=== PATIENT | female | born 1980 | race Caucasian/White ===

== ENCOUNTER 2019-04-23 17:30 | Emergency (ER) | payer OTHER ==
[2019-04-23 18:00] VITALS: BP 131/95
--- NOTE | 2019-04-23 18:16 | UC ---
Skin Complaint HPI - HPI Summary HPI Summary: C/O itchy bumpy rash x 3 days, spreading. On back, chest, neck, abdomen. No new medications or other exposures. - History of Current Complaint Chief Complaint: UCRash Stated Complaint: SKIN CONCERN Hx Obtained From: Patient Hx Last Menstrual Period: HAD HYSTERECTOMY 02013 ?: No Onset/Duration: Sudden Onset, Lasting Days - 3, Worse Since - onset Timing: Constant Onset Severity: Mild Current Severity: Moderate Pain Intensity: 4 Location: Diffuse Character: Pruritus, Redness, Raised Aggravating Factor(s): Clothing, Touch Alleviating Factor(s): Cold, Antihistamines - Allergy/Home Medications Allergies/Adverse Reactions: Allergies Allergy/AdvReac Type Severity Reaction Status Date / Time No Known Allergies Allergy Verified 04/23/19 17:59 PMH/Surg Hx/FS Hx/Imm Hx Previously Healthy: Yes - Surgical History Surgical History: Yes Surgery Procedure, Year, and Place: C SECTION X'S 3, APPENDECTOMY, GALL BLADDER REMOVAL, HYSTERECTOMY - Family History Known Family History: Positive: Hypertension - Social History Occupation: Employed Full-time Lives: With Family Alcohol Use: None Substance Use Type: None Smoking Status (MU): Former Smoker Type: Cigarettes Amount Used/How Often: 1 PPD Have You Smoked in the Last Year: Yes When Did the Patient Quit Smoking/Using Tobacco: 10 months Household Exposure Type: Cigarettes Review of Systems All Other Systems Reviewed And Are Negative: Yes Skin: Positive: Rash Is Patient Immunocompromised?: No Physical Exam Triage Information Reviewed: Yes Appearance: Well-Appearing, No Pain Distress, Well-Nourished Vital Signs: Initial Vital Signs Temp 98.3 F 04/23/19 17:55 Pulse 90 04/23/19 17:55 Resp 16 04/23/19 17:55 BP 131/95 04/23/19 17:55 Pulse Ox 100 04/23/19 17:55 Vital Signs Reviewed: Yes Eyes: Positive: Conjunctiva Clear ENT Exam: Normal Neck exam: Normal Respiratory Exam: Normal Cardiovascular Exam: Normal Musculoskeletal Exam: Normal Neurological Exam: Normal Psychological Exam: Normal Skin: Positive: Rashes - diffuse maculopapular rash neck down chest and back to the abdomen and to the top of the buttocks. Course/Dx - Differential Diagnoses - Skin Complaint Differential Diagnoses: Cellulitis, Contact Dermatitis, Drug Rash, Urticaria, Viral Exanthem - Diagnoses Provider Diagnosis: Dermatitis Discharge - Sign-Out/Discharge Documenting (check all that apply): Patient Departure All imaging exams completed and their final reports reviewed: No Studies - Discharge Plan Condition: Stable Disposition: HOME Prescriptions: predniSONE TAB* [Deltasone 20 MG TAB*] 60 mg PO DAILY #18 tab Patient Education Materials: Acute Rash (ED), Prednisone (By mouth) Referrals: Aminata Mckeon MD [Primary Care Provider] - Additional Instructions: OTC cetirizine 10mg in the evening and 180 mg fexofenadine in the morning. - Billing Disposition and Condition Condition: STABLE Disposition: Home
== END 2019-04-23 18:24 | disposition home or self-care (01) ==
LOC: UCCORT 17:30
DX: L30.9 Dermatitis, unspecified (principal); Z87.891 Personal history of nicotine dependence
CPT/HCPCS: 99212; G0463

== ENCOUNTER 2020-02-17 14:39 | Emergency (ER) | payer OTHER ==
--- OUTSIDE RECORDS SUMMARY | 2020-02-17 14:49 | XMS REPORT | Continuity of Care Document ---
:1980 External Reference #:[id number] Author Name Joe Martinez MD (transmitted by agent of provider Sheryl Chowdhury) Address [address] [place] [id number] Care Team Providers Name Role Phone Rosemary Plascencia NP - Nurse Care Team Information Lapidary Apprentice [phone] Practitioner Problems Active Problems Provider Date Carpal tunnel syndrome Bart Estrada MD, FACS Onset: 01/26/2013 Social History Type Date Description Comments Sex Unknown Tobacco Use Start: Unknown current cigarette smoker 5 a day ETOH Use Denies alcohol use Tobacco Use Start: Unknown Light tobacco smoker (10 or fewer cigarettes/day) Smoking Status Reviewed: 12/27/19 Light tobacco smoker (10 or fewer cigarettes/day) Allergies, Adverse Reactions, Alerts Active Allergies Reaction Severity Comments Date NKDA 01/26/2013 Latex 01/26/2013 Medications Description No Active Medications Immunizations CPT Code Status Date Vaccine Lot # [id number] Given 07/09/2010 flu vaccination 27599 Given 07/09/2010 H1N1 Immuniation Adminstration Vital Signs Date Vital Result Comment 08/18/2016 3:13pm BP Systolic Sitting Left Arm 118 mmHg BP Diastolic Sitting Left Arm 78 mmHg Heart Rate 84 /min Respiratory Rate 18 /min Height 63 inches 5'3" Weight 156.00 lb BMI (Body Mass Index) 27.6 kg/m2 BSA (Body Surface Area) 1.74 m2 Lav[place] body weight in kilograms 52 kg 01/26/2013 9:58am BP Systolic Sitting Right Arm 112 mmHg BP Diastolic Sitting Right Arm 68 mmHg Height 63.5 inches 5'3.50" Weight 149.00 lb BMI (Body Mass Index) 26.0 kg/m2 Results Description No Information Available Procedures Date Code Description Status 12/27/2019 73626 Gonioscopy Completed 12/27/2019 82016 Eye Exam New Patient Comprehensive Completed 12/27/2019 93637 Ophthalmic Ultrasound, Corneal Pachymetry, Completed Unilateral/Bilateral Medical Devices Description No Information Available Encounters Description No Information Available Assessments Date Code Description Provider 12/27/2019 H40.053 Ocular hypertension, bilateral Joe Martinez MD Plan of Treatment Future Appointment(s):02/07/2020 8:15 am - Joe [facility] MD at [id number]/ 25/2020 - Joe Martinez MDH40.053 Ocular hypertension, bilateralComments:- iop 22, 25- angle open on gonioscopy- pachymetry: 553, 555- discussed potential for glaucoma, potential need for iop-lowering such as drops, laser, surgery, potential for vision loss- recommend 4-6 weeks iop check, vf 24-2, oct rnflFollow up:recommend 4-6 weeks iop check, vf 24-2, oct rnfl; long Functional Status Functional Condition Comment Date Status Independent with all ADL's Active Independent with all IADL's Active Mental Status Description No Information Available Referrals Description No Information Available
--- OUTSIDE RECORDS SUMMARY | 2020-02-17 14:49 | XMS REPORT | Continuity of Care Document ---
:1980 External Reference #:[id number] Author Name Joe Martinez MD Address [address] [place] [address] Care Team Providers Name Role Phone Rosemary Plascencia NP - Nurse Care Team Information Direct Customer Service Representative [phone] Practitioner Problems Active Problems Provider Date Carpal [...] CPT Code Status Date Vaccine Lot # [id number] Given 07/09/2010 flu vaccination 32126 Given 07/09/2010 H1N1 Immuniation Adminstration Vital Signs Date Vital Result Comment 08/18/2016 3:13pm BP Systolic Sitting Left Arm 118 mmHg BP Diastolic Sitting Left Arm 78 mmHg Heart Rate 84 /min Respiratory Rate 18 /min Height 63 inches 5'3" Weight 156.00 lb BMI (Body Mass Index) 27.6 kg/m2 BSA (Body Surface Area) 1.74 m2 Ellis body weight in kilograms 52 kg 01/26/2013 9:58am BP Systolic Sitting Right Arm 112 mmHg BP Diastolic Sitting Right Arm 68 mmHg Height 63.5 inches 5'3.50" Weight 149.00 lb BMI (Body Mass Index) 26.0 kg/m2 Results Description No Information Available Procedures Date Code Description Status 12/27/2019 03432 Gonioscopy Completed 12/27/2019 93095 Eye Exam New Patient Comprehensive Completed 12/27/2019 35972 Ophthalmic Ultrasound, Corneal Pachymetry, Completed Unilateral/Bilateral Medical Devices Description No Information Available Encounters Description No Information Available Assessments Date Code Description Provider 12/27/2019 H40.053 Ocular hypertension, bilateral Joe Martinez MD Plan of Treatment Future Appointment(s):02/07/2020 8:15 am - Jeo Martinez MD at [id number]/ 25/2020 - Joe Martinez MDH40.053 Ocular hypertension, [...]
[2020-02-17 14:59] VITALS: BP 136/94
--- NOTE | 2020-02-17 15:31 | UC ---
Hand/Wrist HPI - HPI Summary HPI Summary: Pt presents with c/o left hand pain, swelling, bruising and abrasions after getting hand caught between two objects at grocery store earlier today. Pt has applied ice, taken ibuprofen, washed abrasions and applied triple antibiotic ointment. - History Of Current Complaint Chief Complaint: UCTrauma Stated Complaint: LEFT HAND INJURY Time Seen by Provider: 02/17/20 14:52 Hx Obtained From: Patient Hx Last Menstrual Period: HAD HYSTERECTOMY 2013 ?: No Onset/Duration: Sudden Onset, Lasting Hours, Still Present Severity Initially: Moderate Severity Currently: Moderate Pain Intensity: 7 Character Of Pain: Dull, Aching Aggravating Factor(s): Movement, Lifting Alleviating Factor(s): Rest Associated Signs And Symptoms: Positive: Swelling, Bruising, Other - abrasions, superficial Related History: Dominant Hand Right - Risk Factors Compartment Syndrome Risk Factors: Pain - Allergies/Home Medications Allergies/Adverse Reactions: Allergies Allergy/AdvReac Type Severity Reaction Status Date / Time No Known Allergies Allergy Verified 02/17/20 14:59 Home Medications: Home Medications NK [No Home Medications Reported] 02/17/20 [History Confirmed 02/17/20] PMH/Surg Hx/FS Hx/Imm Hx Previously Healthy: Yes - Surgical History Surgical History: Yes Surgery Procedure, Year, and Place: C SECTION X'S 3, APPENDECTOMY, GALL BLADDER REMOVAL, HYSTERECTOMY - Family History Known Family History: Positive: Hypertension - Social History Occupation: Employed Full-time Lives: With Family Alcohol Use: None Substance Use Type: None Smoking Status (MU): Current Every Day Smoker Type: Cigarettes Amount Used/How Often: 5-6 cigs daily Have You Smoked in the Last Year: Yes When Did the Patient Quit Smoking/Using Tobacco: 10 months Household Exposure Type: Cigarettes - Immunization History Vaccination Up to Date: Yes Review of Systems All Other Systems Reviewed And Are Negative: Yes Constitutional: Positive: Negative Skin: Positive: Bruising, Other - multiple superficial abrasions to left dorsal , medial aspect of hand over metacarpals 3-5 Eyes: Positive: Negative ENT: Positive: Negative Respiratory: Positive: Negative Cardiovascular: Positive: Negative Gastrointestinal: Positive: Negative Genitourinary: Positive: Negative Motor: Positive: Decreased ROM - left hand due to swelling. Pt c/o pain wiht ROM Neurovascular: Positive: Negative Musculoskeletal: Positive: Decreased ROM - pain with ROM, Edema, Myalgia - left hand, Neurological/Mental Status: Positive: Negative Psychological: Positive: Negative Is Patient Immunocompromised?: No Physical Exam Triage Information Reviewed: Yes Appearance: Pain Distress - wiht PE Vital Signs: Initial Vital Signs Temp 98.5 F 02/17/20 14:52 Pulse 99 02/17/20 14:52 Resp 18 02/17/20 14:52 BP 136/94 02/17/20 14:52 Pulse Ox 98 02/17/20 14:52 Vital Signs Reviewed: Yes Eye Exam: Normal ENT: Positive: Hearing grossly normal Dental Exam: Normal Neck exam: Normal Respiratory: Positive: No respiratory distress Musculoskeletal: Positive: Edema @ - left medial distal metacarpals 3-5, with ecchymosis and scattered superficial abrasions. Neurological Exam: Normal Psychological Exam: Normal Skin Exam: Other - ecchymosis left medial aspect dorsal side, over metacarpals 3 -5. Multiple abrasions, closed with no active bleeding. Diagnostics - Radiology No standard instances Radiology Interpretation Completed By: Radiologist - negative Hand/Wrist Course/Dx - Differential Dx/Diagnosis Differential Diagnosis/HQI/PQRI: Contusion, Fracture, Infection, Sprain, Strain Provider Diagnosis: Hematoma, Contusion of hand, left Discharge ED - Sign-Out/Discharge Documenting (check all that apply): Patient Departure All imaging exams completed and their final reports reviewed: Yes - Discharge Plan Condition: Stable Disposition: HOME Patient Education Materials: Hematoma (ED), Crush Injury (ED) Referrals: Aminata Mckeon MD [Primary Care Provider] - If Needed Morgan Wong MD [Medical Doctor] - - Billing Disposition and Condition Condition: STABLE Disposition: Home
== END 2020-02-17 16:11 | disposition home or self-care (01) ==
LOC: UCCORT 14:39
DX: S60.222A Contusion of left hand, initial encounter (principal); S60.512A Abrasion of left hand, initial encounter; W23.0XXA Caught, crushed, jammed, or pinched between moving objects, initial encounter; Y93.89 Activity, other specified; Y92.512 Supermarket, store or market as the place of occurrence of the external cause; F17.210 Nicotine dependence, cigarettes, uncomplicated
CPT/HCPCS: 99212; G0463